=== PATIENT | female | born 1975 | race Native Hawaiian/Other Pacific Islander ===

== ENCOUNTER 2020-05-10 20:14 | Emergency (ER) | payer OTHER ==
[~2020-05-10] VITALS: Ht 172.7 cm; Wt 110.2 kg
[2020-05-10 21:02] LABS: PLATELET COUNT 215 K/uL (152-353)
[2020-05-10 21:08] LABS: POTASSIUM 4.3 mmol/L (3.6-5.2)
[2020-05-10 21:30] VITALS: BP 129/80; TEMP 98.1
== END 2020-05-10 21:30 | disposition home or self-care (01) ==
LOC: ED 20:14
PROVIDERS: Hospitalist
DX: U07.1 COVID-19 (principal); J06.9 Acute upper respiratory infection, unspecified; E78.1 Pure hyperglyceridemia; E11.21 Type 2 diabetes mellitus with diabetic nephropathy
CPT/HCPCS: 36415; 80048; 85027; 87502; 87635; 87651; 99283; G2023; J1815; U00003